=== PATIENT | female | born 1990 | race Caucasian/White ===

== ENCOUNTER → 2019-10-15 | Outpatient (CLI) | payer OTHER ==
--- NOTE | 2019-10-15 14:11 | KCIC ---
EXAM: Bilateral digital diagnostic mammogram with tomosynthesis; bilateral breast sonogram. HISTORY: 29-year-old female presents with palpable breast lumps and pain. TECHNIQUE: Full-field digital craniocaudal and mediolateral oblique 2D and 3D tomosynthesis images of both breasts are obtained for evaluation. Computer aided detection with [employer] software version 9.3 was applied. Sonographic imaging of both breasts targeted to sites of palpable concern was also performed. COMPARISON: None. This is baseline mammogram. BREAST PARENCHYMAL DENSITY: Level D - Extremely dense. FINDINGS: There is suspicious mass, microcalcification or region of architectural distortion. Sonographic imaging of both breasts demonstrates extremely dense breast pattern, at the site of palpable concern. No suspicious sonographic lesion is seen. IMPRESSION: 1. No suspicious mammographic or sonographic finding. No correlate for reported palpable abnormality concern within both breasts. Note is made that continued clinical follow-up of palpable abnormalities is recommended. Negative imaging should not preclude the decision to biopsy a palpable abnormality if there is continuing concern. 2. BI-RADS Category 2: Benign finding(s). RECOMMENDATION: Bilateral mammography resuming age 40, or earlier if deemed indicated based on clinical history, is recommended according to ACR guidelines. If your mammogram demonstrates that you have dense breast tissue, which could hide abnormalities, and if you have other risk factors for breast cancer that have been identified, you might benefit from supplemental screening tests that may be suggested by your ordering physician. Dense breast tissue, in and of itself, is a relatively common condition. This information is not provided to cause undue concern, but rather to raise your awareness and to promote discussion with your physician regarding the presence of other risk factors, in addition to dense breast tissue. A report of your mammography results will be sent to you and your physician. You should contact your physician if you have any questions or concerns regarding this report. Mammography is a sensitive method for finding small breast cancers, but it does not detect them all and is not a substitute for careful clinical examination. A negative mammogram does not negate a clinically suspicious finding and should not result in delay in biopsying a clinically suspicious abnormality. PQRS compliance statement - Patient information was entered into a reminder system with a target due date for the next mammogram. "Our facility is accredited by the [employer] Mammography [employer]." Electronically signed by: Merari Cao MD (10/15/2019 2:09 PM) [id number]
== END | disposition home or self-care (01) ==
LOC: KCIC MAMMO 12:49
PROVIDERS: ATTEND Nurse Practitioner Women's Health
DX: N64.4 Mastodynia (principal); N63.20 Unspecified lump in the left breast, unspecified quadrant
CPT/HCPCS: 76641; 77066; G0279; 77062